=== PATIENT | female | born 1985 | race Caucasian/White ===

== ENCOUNTER 2016-07-03 06:05 | Day surgery (SDC) | payer OTHER ==
[~2016-07-03 06:05] MED LIST: LEXAPRO10 PO; MIRALAX POWDER1 PKT PO
== END 2016-07-03 23:59 | disposition home or self-care (01) ==
LOC: MSC 06:05
PROVIDERS: Surgery Plastic and Reconstructive Surgery
PROC: 0H0V0JZ Alteration of Bilateral Breast with Synthetic Substitute, Open Approach (ICD-10-PCS; principal; 2016-07-03 07:15)
DX: Z41.1 Encounter for cosmetic surgery (principal); Z98.890 Other specified postprocedural states; Z79.899 Other long term (current) drug therapy
CPT/HCPCS: 84703; A9270-GY; C1789; J0690; J1580; J2250; J2405; J2710; J3010